=== PATIENT | female | born 1955 | race Caucasian/White ===

== ENCOUNTER → 2016-07-11 | Outpatient (CLI) | payer BC, OTHER ==
[~2016-07-11] MED LIST: AMOX400T12 PO; AZIT250T81 PO; METF500T4 PO
[2016-07-11 17:42] VITALS: BP 130/87
--- NOTE | 2016-07-11 17:42 | Urgent Care T Sheet Gen (E) ---
Intake General Temperature (Fahrenheit): 97.5 Pulse: 80 Blood Pressure Systolic: 130 Blood Pressure Diastolic: 87 Respirations: 22 SPO2: 98 Description of Symptoms Patient presents with illness x 2 weeks. Notes cough, PND and irritated throat. No fever. Patient has history of lung disorder for which she has a nebulizer. Patient started using the nebulizer a few days ago and noticed improvement in the cough but not resolution. Been taking OTC cold meds without improvement. History of Present Illness Allergies: Coded Allergies: No Known Drug Allergies (Unverified , 03/02/14) Home Meds Reported Medications Metformin HCl 500 Mg [id number] Mg PO BID 03/02/14 Respiratory Constitutional Symptoms: No syptoms reported EENTM: Throat pain Respiratory: CoughNo Short of breath Cardiovascular: No symptoms reported Gastrointestinal/Abdominal: No symptoms reported All Other Systems Reviewed Remaining Systems: All other systems reviewed with negative findings Past Masixak-Qijqgx-Cxesgb Hx Surgeries/Hospitalizations Hospitalization/Surgery Hx: Hyst. Ayana. Partial Thoracotomy. Respiratory Respiratory History: COPD Cardiovascular Cardiovascular History: None Neuro/Muscular Neuro/Muscular History: Back Problems Gastrointestinal GI/Endocrine History: None Physical Exam Physical Exam General Appearance: WD/WN No apparent distress Eyes, Ears, Nose, Throat Ex: TMs normal Pharyngeal erythema (cobblestone appearance with PND) Other (clear nasal drainage; no nasal congestion.) Neck Exam: SuppleNo Lymphadenopathy Respiratory Exam: Lungs clear Normal breath sounds Cardiovascular Exam: Regular rate, rhythm Departure Urgent Care Impression Impression: Primary Impression: Cough Departure Disposition: HOME OR SELF-CARE Condition: Stable Referrals: Flaco Gallagher MD (PCP) Additional Instructions: With her history of lung disorder, I opted to treat with Zithromax. She is to continue with nebulizer as prescribed. Suggested she DC cold meds and try an antihistamine such as Zyrtec or Claritin to help with drainage which is contributing to her cough and irritated throat Rest. Fluids Return as needed or f/u with PCP Patient understands DC instructions. All questions were answered. Scripts Azithromycin (Zithromax Z-Carlos)6 Tab/Pkt Pltapa970 Mg PO SEE INSTRUCTIONS #6 TAB Ref 0 Day One: Take 2 tablets by mouth Days Two-Five: Take 1 tablet by mouth Prov:TEOFILO DICKERSON 07/11/16 End of report . TEOFILO DICKERSON Jul 11, 2016 17:42
== END ==
LOC: MHUC 17:11
PROVIDERS: ATTEND Physician Assistant
DX: R05 Cough (principal)
CPT/HCPCS: 99213